=== PATIENT | male | born 1955 | race Caucasian/White ===

== ENCOUNTER → 2022-09-24 | Outpatient (CLI) | payer MEDICARE, BC | LOC: M RAD 15:03 | PROVIDERS: ATTEND Student in an Organized Health Care Education/Training Program | DX: J06.9 Acute upper respiratory infection, unspecified (principal); R10.30 Lower abdominal pain, unspecified ==

== ENCOUNTER → 2022-09-24 | Outpatient (REF) | payer MEDICARE, BC | LOC: M WUC 17:06 | PROVIDERS: ATTEND Student in an Organized Health Care Education/Training Program | DX: R10.30 Lower abdominal pain, unspecified (principal) ==